=== PATIENT | male | born 1980 | race Caucasian/White ===

== ENCOUNTER 2021-03-16 17:40 | Emergency (ER) | payer OTHER | END 2021-03-16 19:50 | disposition home or self-care (01) | LOC: ER1 17:40 | DX: S43.015A Anterior dislocation of left humerus, initial encounter (principal); W19.XXXA Unspecified fall, initial encounter; Y93.9 Activity, unspecified; Y92.009 Unspecified place in unspecified non-institutional (private) residence as the place of occurrence of the external cause; Z88.0 Allergy status to penicillin | CPT/HCPCS: 23650; 73030; 96374; 96375; 99152; 99283; J1885; J2270; J2405; J2704 ==

== ENCOUNTER → 2021-04-11 | Outpatient (CLI) | payer OTHER, BC | LOC: RAD 15:57 | DX: M54.2 Cervicalgia (principal); M79.602 Pain in left arm; M25.512 Pain in left shoulder; V89.2XXA Person injured in unspecified motor-vehicle accident, traffic, initial encounter; Y99.0 Civilian activity done for income or pay; M47.812 Spondylosis without myelopathy or radiculopathy, cervical region; S43.102A Unspecified dislocation of left acromioclavicular joint, initial encounter | CPT/HCPCS: 72040; 73000; 73030; 73060 ==

== ENCOUNTER → 2021-06-16 | Outpatient (CLI) | payer BC | LOC: MRI 09:10 | DX: M75.122 Complete rotator cuff tear or rupture of left shoulder, not specified as traumatic (principal); M75.112 Incomplete rotator cuff tear or rupture of left shoulder, not specified as traumatic; S43.005A Unspecified dislocation of left shoulder joint, initial encounter; S42.292A Other displaced fracture of upper end of left humerus, initial encounter for closed fracture; X58.XXXA Exposure to other specified factors, initial encounter | CPT/HCPCS: 73221 ==

== ENCOUNTER → 2021-06-29 | Day surgery (SDC) | payer OTHER, BC ==
[~2021-06-29] VITALS: Ht 185.4 cm; Wt 132.4 kg
[~2021-06-29] MED LIST: ADVIL200 MG PO; PRILOSEC OTC20 MG PO
== END | disposition home or self-care (01) ==
LOC: OR 08:06
DX: M75.102 Unspecified rotator cuff tear or rupture of left shoulder, not specified as traumatic (principal); M75.52 Bursitis of left shoulder; M75.42 Impingement syndrome of left shoulder; S43.005A Unspecified dislocation of left shoulder joint, initial encounter; M65.812 Other synovitis and tenosynovitis, left shoulder; S43.432A Superior glenoid labrum lesion of left shoulder, initial encounter; X58.XXXA Exposure to other specified factors, initial encounter; K21.9 Gastro-esophageal reflux disease without esophagitis; Z88.0 Allergy status to penicillin; Z79.1 Long term (current) use of non-steroidal anti-inflammatories (NSAID); Z79.899 Other long term (current) drug therapy
CPT/HCPCS: 82962; C1713; J0171; J1100; J1170; J2250; J2370; J2704; J2795